=== PATIENT | female | born 1980 | race Caucasian/White ===

== ENCOUNTER 2017-06-11 08:39 | Inpatient (IN) | payer OTHER ==
[~2017-06-11] VITALS: Ht 162.6 cm; Wt 55.3 kg
[~2017-06-11 08:39] MED LIST: DICY20TA PO; PROTONIX40 MG PO; XANAX XR1 MG PO; ZOLOFT100 MG PO
[2017-06-11] MEDS ORDERED: NORETHINDRONE (10:57)
== END 2017-06-15 12:49 | disposition home or self-care (01) | DRG 743 ==
LOC: O/R 06-14 06:20 → SURG 06-14 07:00 → CIR.AMB 06-14 08:06 → EDSTATUS 06-14 09:47 → SURG 06-14 09:48 → SURG-SUITE 06-14 10:05
PROVIDERS: Obstetrics & Gynecology
PROC: 0UT04ZZ Resection of Right Ovary, Percutaneous Endoscopic Approach (ICD-10-PCS; principal; 2017-06-14 07:00)
DX: N83.11 Corpus luteum cyst of right ovary (principal); R19.01 Right upper quadrant abdominal swelling, mass and lump